=== PATIENT | female | born 1985 | race Caucasian/White ===

== ENCOUNTER 2017-06-21 16:55 | Emergency (ER) | payer OTHER ==
[~2017-06-21] VITALS: Ht 175.3 cm; Wt 98.0 kg
[~2017-06-21 16:55] MED LIST: MEDROLDOSEPACK PO
[2017-06-21 17:07] VITALS: BP 142/83
[2017-06-21] MEDS ORDERED: AMOXICILLIN875 MG PO ×2 (17:12→17:20)
[2017-06-21] MEDS ORDERED: MUCINEX600 MG PO (17:16)
[2017-06-21] MEDS ORDERED: [UNRECOGNIZED DRUG - OTHER] PO (17:16)
== END 2017-06-21 17:28 | disposition home or self-care (01) ==
LOC: M.ERS 16:55
DX: O26.892 Other specified pregnancy related conditions, second trimester (principal); Z3A.16 16 weeks gestation of pregnancy; H66.92 Otitis media, unspecified, left ear; F10.99 Alcohol use, unspecified with unspecified alcohol-induced disorder; Z98.890 Other specified postprocedural states

== ENCOUNTER 2017-06-29 16:51 | Emergency (ER) | payer OTHER ==
[~2017-06-29] VITALS: Ht 175.3 cm; Wt 101.6 kg
[~2017-06-29 16:51] MED LIST changes: +AMOXICILLIN875 MG PO; +MUCINEX600 MG PO; +[UNRECOGNIZED DRUG - OTHER] PO
[2017-06-29 16:57] VITALS: BP 149/84
== END 2017-06-29 17:39 | disposition home or self-care (01) ==
LOC: M.ERS 16:51
DX: O26.899 Other specified pregnancy related conditions, unspecified trimester (principal); H65.91 Unspecified nonsuppurative otitis media, right ear; Z3A.00 Weeks of gestation of pregnancy not specified